=== PATIENT | female | born 1960 | race Caucasian/White ===

== ENCOUNTER 2017-03-10 18:02 | Emergency (ER) | payer OTHER ==
--- NOTE | ~2017-03-10 | ER ---
PATIENT'S NAME: EDDIE [facility] AGE: 56 Y [address] ROOM: [place] [address] LOCATION: [facility] ADMIT DATE: 03/10/2017 ER/Outpatient Report DISCHARGE DATE: 03/10/2017 FAMILY PHYSICIAN: PHYSICIAN, NO ATTENDING PHYSICIAN: Andres Barlow Admission date and time documented on the medical record. I saw the patient at 1815 hours. CHIEF COMPLAINT: Shortness of breath, exacerbation of asthma. HISTORY OF PRESENT ILLNESS: This patient is a 56-year-old female, who around 18 hours prior to admission to the emergency room had exacerbation of asthma with increasing shortness of breath. She had some fever and chills at home. She has a congested cough but not productive. Afebrile here in the emergency room with a temperature 97 tympanic. She is little bit tachypneic with a respiratory rate of 20. O2 saturation on room air was 92%. No chest pain. No headache, eyes, ears, nose, throat, neck, or spine pain. No abdominal pain, nausea, vomiting, diarrhea, or urinary frequency, urgency, or dysuria. No joint or muscle swelling, redness, or pain. No skin eruptions or rash. No history of endocrine problems, neuro changes, psych issues. HOME MEDICATIONS: See attached medication list. ALLERGIES: NONE. SOCIAL HISTORY: The patient smokes a third to half a pack of cigarettes per day. Nondrinker. SIGNIFICANT PAST MEDICAL HISTORY: Tobacco abuse, asthma. OPERATIONS: Foot surgery x2, nasal surgery, cholecystectomy, right wrist surgery. REVIEW OF SYSTEMS: All systems reviewed by me are negative with the exception of those discussed in the history of present illness. PHYSICAL EXAMINATION: Temperature 97 tympanic, pulse 80, respirations 20, blood pressure 149/101, O2 PATIENT'S NAME: EDDIE [facility] AGE: 56 Y [address] ROOM: [place] [address] LOCATION: [facility] ADMIT DATE: 03/10/2017 ER/Outpatient Report DISCHARGE DATE: 03/10/2017 FAMILY PHYSICIAN: PHYSICIAN, NO ATTENDING PHYSICIAN: Andres Barlow saturation on room air is 92%. HEENT: HEAD: Normocephalic. Eyes: Clear. Ears, clear TMs bilaterally. NOSE: Clear. THROAT: Clear. Mucous membranes moist. Teeth, jaw intact. NECK: No nuchal rigidity. No thyromegaly or cervical adenopathy. Range of motion full. No tenderness. SPINE: Nontender. No deformity. LUNGS: Decreased breath sounds diffusely. Coarse, congested cough. Some expiratory wheezes diffusely. No rales. Few rhonchi scattered. The patient is mildly tachypneic. HEART: Regular. Pulses are palpable. ABDOMEN: Soft, nontender, good bowel tones. EXTREMITIES: Without peripheral edema, cyanosis, or deformity. Neurovascularly intact. SKIN: Clear. No skin eruptions or rash. IMPRESSION: 1. Exacerbation of asthma. 2. Tobacco abuse. PLAN: The patient was given Rocephin 1 g IM in the emergency room. Solu-Medrol 125 mg IM in the emergency room. DuoNeb respiratory nebulizer treatment in the emergency department. Discharged home. Observation. Activity as tolerated. Fluids and diet as tolerated. Albuterol oral inhaler 2 puffs 4 times a day and p.r.n. Medrol Dosepak take as directed. Z-Roland, take as directed. Follow up with personal physician as needed. Discussion ensued with the patient concerning my findings and recommendations, she understands. MD MARIAJOSE ENRIQUEZ/modl /[id number] d: 03/10/17 2253 t: 03/11/17 0533, OUTPATIENT REPORT
== END 2017-03-10 18:45 | disposition disaster alternative care site (69) ==
LOC: GMED 18:02
DX: J45.901 Unspecified asthma with (acute) exacerbation (principal); F17.210 Nicotine dependence, cigarettes, uncomplicated; Z79.899 Other long term (current) drug therapy; Z90.49 Acquired absence of other specified parts of digestive tract; Z98.890 Other specified postprocedural states
CPT/HCPCS: J0696; J2930